=== PATIENT | female | born 1990 | race Caucasian/White ===

== ENCOUNTER → 2020-05-25 | Outpatient (CLI) | payer BC, OTHER | END | disposition home or self-care (01) | LOC: STAR 12:24 | PROVIDERS: ATTEND Obstetrics & Gynecology | DX: Z20.828 Contact with and (suspected) exposure to other viral communicable diseases (principal) | CPT/HCPCS: 87635 ==

== ENCOUNTER 2020-05-29 03:04 | Outpatient (CLI) | payer BC ==
[~2020-05-29] VITALS: Ht 170.2 cm; Wt 89.1 kg
== END 2020-05-29 06:00 | disposition home or self-care (01) ==
LOC: LDOP 03:04
PROVIDERS: ATTEND Obstetrics & Gynecology
DX: O62.8 Other abnormalities of forces of labor (principal); Z3A.39 39 weeks gestation of pregnancy
CPT/HCPCS: 59025

== ENCOUNTER 2020-05-29 18:36 | Inpatient (IN) | payer BC ==
[~2020-05-29] VITALS: Ht 167.6 cm; Wt 89.0 kg
[2020-05-29] MEDS ORDERED: CLINDAMYCIN PMX 900MG/50ML 50 ML ONE (19:01)
[2020-05-29] MEDS ORDERED: LIDOCAINE 1%, 20ML ONE ×2 (19:07→19:40)
[2020-05-29] MEDS ORDERED: NEWBORN KIT ONE (19:07)
[2020-05-29] MEDS ORDERED: OXYTOCIN 30U/ 0.9% NaCL 500ML 500 ML ONE (19:08)
[2020-05-29] MEDS ORDERED: MISOPROSTOL 200 MCG TABLET ONE (19:08)
[2020-05-29] MEDS ORDERED: OXYTOCIN 30U/ 0.9% NaCL 500ML 500 ML IV ONE (19:30)
[2020-05-29] MEDS ORDERED: ALUMINUM/MAG/SIMETHICONE 30 ML UDC PO PRN (19:30)
[2020-05-29] MEDS ORDERED: OXYTOCIN 30U/ 0.9% NaCL 500ML 500 ML IV PRN (19:30)
[2020-05-29] MEDS ORDERED: FENTANYL PF 100 MCG/2ML IV PRN (19:30)
[2020-05-29] MEDS ORDERED: ONDANSETRON 2MG/ML, 2ML IVPush PRN (19:30)
[2020-05-29] MEDS ORDERED: MISOPROSTOL 25 MCG TABLET VG PRN (19:30)
[2020-05-29] MEDS ORDERED: TERBUTALINE 1 MG/ML, 1ML SQ PRN (19:30)
[2020-05-29] MEDS ORDERED: D5%-LACTATED RINGERS 1,000 ML IV SCH (19:30)
[2020-05-29] MEDS ORDERED: CALCIUM CARBONATE 500 MG TAB.CHEW PO PRN (19:30)
[2020-05-29] MEDS ORDERED: TERBUTALINE 1 MG/ML, 1ML IVPush PRN (19:30)
[2020-05-29] MEDS ORDERED: FENTANYL PF 100 MCG/2ML IVPush PRN (19:30)
[2020-05-29] MEDS ORDERED: LACTATED RINGERS 1,000 ML IV SCH (19:30)
[2020-05-29 19:31] LABS: BASOPHILS % (AUTO) 1 % (0-1); EOSINOPHILS % (AUTO) 0 % (1-7); LYMPHOCYTES % (AUTO) 14 % (22-44); MEAN CORPUSCULAR HEMOGLOBIN 29.4 pg (27.0-34.8); MEAN CORPUSCULAR HGB CONC 32.7 g/dL (32.4-35.8); MEAN PLATELET VOLUME 8.4 fL (7.4-10.4); MONOCYTES % (AUTO) 5 % (2-9); NEUTROPHILS % (AUTO) 81 % (42-75); PLATELET COUNT 217 x10^3/uL (130-400); RED BLOOD COUNT 4.41 x10^6/uL (3.82-5.3); RED CELL DISTRIBUTION WIDTH 13.3 % (9.6-15.2)
[2020-05-29 19:33] LABS: MD NO
[2020-05-29] MEDS: CLINDAMYCIN PMX 900MG/50ML 50 ML IVPB SCH (19:57)
[2020-05-29] MEDS ORDERED: FENTANYL PF 100 MCG/2ML ONE (20:07)
[2020-05-29] MEDS ORDERED: EPHEDRINE 50 MG/ML, 1ML ONE (23:07)
[2020-05-29] MEDS ORDERED: FENTANYL/BUPIV./NS/PF 250 ML EPIDCONT ONE (23:11)
[2020-05-29] MEDS ORDERED: BUPIVACAINE 0.25% ONE (23:11)
[2020-05-30] MEDS ORDERED: FENTANYL/BUPIV./NS/PF 250 ML EPIDCONT SCH
[2020-05-30] MEDS ORDERED: LACTATED RINGERS 1,000 ML IV SCH
[2020-05-30] MEDS ORDERED: EPHEDRINE 50 MG/ML, 1ML IVPush PRN
[2020-05-30] MEDS ORDERED: LACTATED RINGERS 1,000 ML IVBOLUS PRN
[2020-05-30] MEDS ORDERED: ONDANSETRON 2MG/ML, 2ML IVPush PRN
[2020-05-30] MEDS ORDERED: DIPHENHYDRAMINE 50 MG/ML, 1ML IVPush PRN
[2020-05-30] MEDS ORDERED: NALOXONE 0.4 MG/ML, 1ML IVPush PRN
[2020-05-30] MEDS ORDERED: CLINDAMYCIN PMX 900MG/50ML 50 ML ONE (03:28)
[2020-05-30] MEDS: CLINDAMYCIN PMX 900MG/50ML 50 ML IVPB SCH (03:30)
[2020-05-30] MEDS ORDERED: METHYLERGONOVINE 0.2 MG/ML IM PRN (05:30)
[2020-05-30] MEDS ORDERED: OXYTOCIN 10 UNITS/ML, 1ML IM PRN (05:30)
[2020-05-30] MEDS ORDERED: ACETAMINOPHEN 325 MG TABLET PO PRN (05:30)
[2020-05-30] MEDS ORDERED: ONDANSETRON 2MG/ML, 2ML IV PRN (05:30)
[2020-05-30] MEDS: OXYTOCIN 30U/ 0.9% NaCL 500ML 500 ML IV SCH ×2 (05:30→15:30)
[2020-05-30] MEDS ORDERED: SIMETHICONE 80 MG CHEW TAB PO PRN (05:30)
[2020-05-30] MEDS ORDERED: DOCUSATE 100 MG CAPSULE PO PRN (05:30)
[2020-05-30] MEDS ORDERED: MISOPROSTOL 200 MCG TABLET PR PRN (05:30)
[2020-05-30] MEDS ORDERED: HYDROcodone/APAP 5/325 TABLET PO PRN ×2 (05:30)
[2020-05-30] MEDS ORDERED: CARBOPROST TROMETHAMINE 250 MCG/ML, 1ML IM PRN (05:30)
[2020-05-30] MEDS ORDERED: OXYTOCIN 30U/ 0.9% NaCL 500ML 500 ML ONE (05:42)
[2020-05-30 07:15] VITALS: BP 115/73
[2020-05-30] MEDS: PRENATAL VIT/IRON/FA 1 EACH TABLET PO SCH (07:49)
[2020-05-30] MEDS: IBUPROFEN 600 MG TABLET PO PRN ×3 (07:49→20:34)
[2020-05-30 12:20] VITALS: BP 138/87
[2020-05-30 13:22] LABS: BASOPHILS % (AUTO) 0 % (0-1); EOSINOPHILS % (AUTO) 0 % (1-7); LYMPHOCYTES % (AUTO) 11 % (22-44); MEAN CORPUSCULAR HEMOGLOBIN 29.4 pg (27.0-34.8); MEAN CORPUSCULAR HGB CONC 32.9 g/dL (32.4-35.8); MEAN PLATELET VOLUME 8.6 fL (7.4-10.4); MONOCYTES % (AUTO) 4 % (2-9); NEUTROPHILS % (AUTO) 85 % (42-75); PLATELET COUNT 179 x10^3/uL (130-400); RED BLOOD COUNT 4.35 x10^6/uL (3.82-5.3); RED CELL DISTRIBUTION WIDTH 13.5 % (9.6-15.2)
[2020-05-30 13:44] LABS: MD SCAN
[2020-05-30 16:00] VITALS: BP 127/82
[2020-05-30 20:45] VITALS: BP 123/74
[2020-05-31] VITALS: BP 113/70
[2020-05-31] MEDS: OXYTOCIN 30U/ 0.9% NaCL 500ML 500 ML IV SCH (01:30)
[2020-05-31] MEDS: IBUPROFEN 600 MG TABLET PO PRN ×2 (02:36→08:36)
[2020-05-31 04:00] VITALS: BP 113/74
[2020-05-31 08:00] VITALS: BP 121/71
[2020-05-31] MEDS: PRENATAL VIT/IRON/FA 1 EACH TABLET PO SCH (08:36)
== END 2020-05-31 11:30 | disposition home or self-care (01) | DRG 807 ==
LOC: LDOP 18:36 → LDIP 19:13 → 2NW 05-30 06:55
PROVIDERS: ADMIT Obstetrics & Gynecology; ATTEND Obstetrics & Gynecology
PROC: 10E0XZZ Delivery of Products of Conception, External Approach (ICD-10-PCS; principal; 2020-05-30)
PROC: 3E0R3BZ Introduction of Anesthetic Agent into Spinal Canal, Percutaneous Approach (ICD-10-PCS; 2020-05-30)
PROC: 00HU33Z Insertion of Infusion Device into Spinal Canal, Percutaneous Approach (ICD-10-PCS; 2020-05-30)
PROC: 10907ZC Drainage of Amniotic Fluid, Therapeutic from Products of Conception, Via Natural or Artificial Opening (ICD-10-PCS; 2020-05-30)
PROC: 0HQ9XZZ Repair Perineum Skin, External Approach (ICD-10-PCS; 2020-05-30)
DX: O99.824 Streptococcus B carrier state complicating childbirth (principal); Z37.0 Single live birth; O99.52 Diseases of the respiratory system complicating childbirth; J45.909 Unspecified asthma, uncomplicated; Z3A.39 39 weeks gestation of pregnancy; Z88.0 Allergy status to penicillin; O69.81X0 Labor and delivery complicated by cord around neck, without compression, not applicable or unspecified; O70.0 First degree perineal laceration during delivery
CPT/HCPCS: 36415; 85025; 86592; 86850; 86900; G0378; J3010; J7120